=== PATIENT | male | born 1945 | race Caucasian/White ===

== ENCOUNTER 2017-02-28 17:17 | Emergency (ER) | payer OTHER ==
[~2017-02-28] VITALS: Ht 175.3 cm; Wt 133.0 kg
[~2017-02-28 17:17] MED LIST: HYDR500C PO; LISI2.5T3 PO; TAMS5CAP PO
[2017-02-28 17:19] VITALS: BP 167/82; PULSE 96; RESP 15; TEMP 97.7; O2SAT 100
--- NOTE | 2017-02-28 19:04 | PD ---
HPI Chief Complaint: Bleeding Time Seen by Provider: 19:03 Travel History International Travel<30 days: No Contact w/Intl Traveler<30days: No Traveled to known affect area: No History of Present Illness HPI 71-year-old male arrives to the ER due to epistaxis. It started yesterday at 5 in the morning. He had to leave work. He was seen at an ER, [facility], and a Rhino Rocket was placed for 3 hours. Minimal persistent bleeding was noted in the posterior oropharynx. He demanded that the Rhino Rocket be removed. The patient wasn't discharged. He followed up at our [facility] facility earlier in the day and there refused Rhino Rocket. He also refused transfer here for evaluation by ENT. He left there AMA. He reports right nostril epistaxis. Onset occurred while he was bending over at work. He takes no blood thinner. He's had no bleeding from the left nostril unless he blocks the right. In the ER he refuses Rhino Rocket. Of note a cautery procedure was performed at the [facility]. The patient packed his own right nostril with a dry 4 x 4 which eventually stopped the bleeding. He reports his most recent prior episode of epistaxis was more than five years ago. PFSH Past Medical History Arthritis: Yes Cardiovascular Problems: Yes (HYPERTENSION) COPD: Yes Hypertension: Yes Respiratory: Yes (COPD, sleep apnea) Sleep Apnea: Yes (pt states bipap at night) Past Surgical History Abdominal Surgery: Yes (hernia) Social History Alcohol Use: Yes (rare) Tobacco Use: No Substance Use: No Allergies-Medications (Allergen,Severity, Reaction): Coded Allergies: No Known Allergies (Unverified , 02/28/17) Reported Meds & Prescriptions Reported Meds & Active Scripts Active Reported Mens 50+ Multi Vitamin & (Multiple Vitamins W/ Minerals) 1 Tab Tab 1 Tab PO HS Albuterol Neb (Albuterol Sulfate) 2.5 Mg/3 Ml Neb 2.5 Mg NEB QID NEB PRN Loratadine 10 Mg Tab 10 Mg PO HS Flonase Nasal [place] (Fluticasone Nasal [place]) 50 Mcg/Act [place] 1 Spr EACH NARE HS Lisinopril 20 Mg Tab 20 Mg PO HS Flomax (Tamsulosin HCl) 0.4 Mg Cap 0.4 Mg PO HS Hydrea (Hydroxyurea) 500 Mg Cap 1,500 Mg PO DAILY Review of Systems Except as stated in HPI: all other systems reviewed are Neg HENT: Positive: Nosebleed Physical Exam Narrative GENERAL: 71-year-old male distress well-nourished well-developed SKIN: Focused skin assessment warm/dry. HEAD: Atraumatic. Normocephalic. EYES: Pupils equal and round. No scleral icterus. No injection or drainage. ENT: No nasal bleeding or discharge. Mucous membranes pink and moist. In the right nostril there is a trace amount of clotted blood on the posterior aspect. A minute focus of irregular nasal mucosa is seen towards the septum. There is no active bleeding. Trace dried blood is observed in the posterior oropharynx. NECK: Trachea midline. No JVD. CARDIOVASCULAR: Regular rate and rhythm. No murmur appreciated. RESPIRATORY: No accessory muscle use. Clear to auscultation. Breath sounds equal bilaterally. GASTROINTESTINAL: Abdomen soft, non-tender, nondistended. Hepatic and splenic margins not palpable. MUSCULOSKELETAL: No obvious deformities. No clubbing. No cyanosis. No edema. NEUROLOGICAL: Awake and alert. No obvious cranial nerve deficits. Motor grossly within normal limits. Normal speech. PSYCHIATRIC: Appropriate mood and affect; insight and judgment normal. Data Data Last Documented VS Vital Signs Date Time Temp Pulse Resp B/P Pulse Ox O2 Delivery O2 Flow Rate FiO2 02/28/17 18:31 18 Room Air 02/28/17 17:19 97.7 96 167/82 100 VS reviewed Orders Ecg Monitoring (02/28/17 19:04) Oximetry (02/28/17 19:04) Sodium Chloride 0.9% Flush (Ns Flush) (02/28/17 19:15) [facility] Medical Decision Making Medical Screen Exam Complete: Yes Emergency Medical Condition: Yes Medical Record Reviewed: Yes Differential Diagnosis anterior epistaxis, posterior epistaxis, anemia Narrative Course Pt removed packings and no active bleeding observed. He remained in bed for 40 minutes. Then he ambulated about the pod. He went to the bathroom without bleeding. He'll be discharged home. Follow up with ENT. Diagnosis Primary Impression: Epistaxis Referrals: Rajesh Bonner MD 2 days Additional Instructions: You have a choice when it comes to health care, and we are glad that you chose [facility]. Hopefully, we have met your expectations on today's visit. You are welcome to return to [facility] at any time, as we are committed to meeting the health care needs of our community. Med/Other Pt SpecificInfo: No Change to Meds Disposition: 01 DISCHARGE HOME Condition: Jose Roberto Gamino MD February 28, 2017 19:04
[2017-02-28] MEDS ORDERED: LISI-515 PO (19:14)
[2017-02-28] MEDS ORDERED: FLUT1SPR5 EACH NARE (19:14)
[2017-02-28] MEDS ORDERED: SODIUM CHLORIDE 0.9% FLUSH 10 ML FLUSH IVF PRN (19:15)
[2017-02-28] MEDS ORDERED: ALBU0.08 NEB (19:17)
[2017-02-28] MEDS ORDERED: MENSTAB4 PO (19:17)
[2017-02-28] MEDS ORDERED: LORA10TA PO (19:17)
== END 2017-02-28 20:08 | disposition home or self-care (01) ==
LOC: NEPE 17:17
DX: R04.0 Epistaxis (principal); I10 Essential (primary) hypertension; G47.30 Sleep apnea, unspecified
CPT/HCPCS: 80053; 85025; 85610; 85730; 99283